=== PATIENT | male | born 1965 | race Caucasian/White ===

== ENCOUNTER 2019-12-18 15:28 | Emergency (ER) | payer BC ==
[~2019-12-18] VITALS: Ht 177.8 cm; Wt 105.3 kg
[2019-12-18] MEDS ORDERED: NEUR300C PO (15:43)
[2019-12-18] MEDS ORDERED: ATOR80TA59 PO (15:43)
[2019-12-18] MEDS ORDERED: PLAV1TAB2 PO (15:43)
[2019-12-18] MEDS ORDERED: LISI-542 PO (15:43)
[2019-12-18] MEDS ORDERED: ALLO100T PO (15:43)
[2019-12-18] MEDS ORDERED: NITR0.4S14 SL (15:43)
[2019-12-18] MEDS ORDERED: METF500T13 PO (15:43)
[2019-12-18] MEDS ORDERED: ASPI1CHW3 PO (15:43)
[2019-12-18] MEDS ORDERED: TOPR25TA PO (15:43)
--- NOTE | 2019-12-18 16:07 | REP ---
Clinical: Trauma. Technique: AP, lateral, bilateral oblique views of the left wrist. Findings: There is a comminuted Colles' fracture of the distal radius extending to the articular surface along with ulnar styloid fracture and overlying soft tissue swelling. Carpal bones appear grossly intact. Impression: Comminuted Colles' fracture and ulnar styloid fracture. Electronically Signed by Kyler Ford MD 12/18/2019 03:59 P
[2019-12-18] MEDS ORDERED: NORCO, ANEXSIA 5/325MG TABLET (HYDROcodone/ACETAMINOPHEN) PO ONE (16:15)
--- NOTE | 2019-12-18 18:25 | REPVR ---
PROCEDURE INFORMATION: Exam: CT Left Upper Extremity Without Contrast, Wrist Exam date and time: 12/18/2019 6:02 PM Age: 54 years old Clinical indication: Injury or trauma; Fall; Initial encounter; Fracture, traumatic injury; Closed fracture; Wrist; Left; Additional info: Fall with FX TECHNIQUE: Imaging protocol: CT of the Left upper extremity without contrast was performed. Exam focused on the wrist. Radiation optimization: All CT scans at this facility use at least one of these dose optimization techniques: automated exposure control; mA and/or kV adjustment per patient size (includes targeted exams where dose is matched to clinical indication); or iterative reconstruction. COMPARISON: CR Wrist, complete 12/18/2019 3:40 PM FINDINGS: Bones/joints: Comminuted minimally displaced fracture of the distal radius extends to the articular surface. Fracture of the ulnar styloid slightly laterally and dorsally displaced demonstrated. Soft tissues: Soft tissue edema surrounds the fracture sites. IMPRESSION: 1. Comminuted minimally displaced fracture of the distal radius extends to the articular surface. 2. Fracture of the ulnar styloid slightly laterally and dorsally displaced demonstrated. Electronically signed by: Zacarias Atkins On 12/18/2019 18:24:59 PM
[2019-12-18] MEDS ORDERED: PERC5TAB12 PO (18:37)
[2019-12-18] MEDS ORDERED: OXYCODONE/APAP 5MG/325MG(BULK FOR ED) 1 TABLET PO ONE (18:45)
[2019-12-18 18:47] VITALS: BP 139/85
== END 2019-12-18 18:59 | disposition home or self-care (01) ==
LOC: EDBD 15:28 → M ED 15:28
DX: S52.532A Colles' fracture of left radius, initial encounter for closed fracture (principal); S52.612A Displaced fracture of left ulna styloid process, initial encounter for closed fracture; W19.XXXA Unspecified fall, initial encounter; Y92.9 Unspecified place or not applicable; Y93.9 Activity, unspecified; Y99.9 Unspecified external cause status; I25.2 Old myocardial infarction; Z95.5 Presence of coronary angioplasty implant and graft; Z79.82 Long term (current) use of aspirin; Z79.84 Long term (current) use of oral hypoglycemic drugs; Z79.899 Other long term (current) drug therapy